=== PATIENT | male | born 1985 | race African-American/Black ===

== ENCOUNTER 2018-05-17 23:04 | Observation (INO) | payer OTHER ==
[~2018-05-17] VITALS: Ht 182.9 cm; Wt 122.1 kg
[~2018-05-17 23:04] MED LIST: ELIMITE 5% CREA60 GM TP; FLEXERIL10 MG PO; MOTRIN800 MG PO; NOHOMEMEDS; PROMETHAZINE HC25 M1 PO
[2018-05-17 23:36] LABS: HEMATOCRIT 47.6 % (38.0-50.0); HEMOGLOBIN 15.7 G/DL (12.5-16.6); MCH 28.1 PG (29.0-34.0); MCV 85.2 FL (86-99); PLATELET COUNT 249 K/uL (156-360); RBC DIS.WIDTH-CV 14.2 % (11.8-14.6); RBC DIS.WIDTH-SD 44.4 % (39-53); RED BLOOD COUNT 5.59 M/uL (4.00-5.50); WHITE BLOOD COUNT 8.2 K/uL (4.1-10.2)
[2018-05-18 00:19] LABS: ALBUMIN 3.7 g/dL (3.2-4.8); CHLORIDE 107 mEq/L (99-109); SODIUM 140 mEq/L (136-147)
[2018-05-18 00:22] LABS: GLUCOSE 109 mg/dL (70-99); TOTAL PROTEIN 7.6 g/dL (6.4-8.3)
[2018-05-18 00:23] LABS: TOTAL BILIRUBIN 0.4 mg/dL (0.0-1.0)
[2018-05-18 00:25] LABS: ALKALINE PHOSPHATASE 128 IU/L (3-129); CREATININE 1.1 mg/dL (0.6-1.3); GFR ESTIMATE (CALCULATED) > 59 mL/min/ (58.99-99999)
[2018-05-18 00:26] LABS: UREA NITROGEN (BUN) 12 mg/dL (9-23)
[2018-05-18 00:27] LABS: AST (GOT) 18 IU/L (2-34); DIRECT BILIRUBIN 0.1 mg/dL (0.0-0.3); TROP-I INTERPRETATION NEGATIVE; TROPONIN-I < 0.01 ng/mL (0.0-0.30)
[2018-05-18 00:28] LABS: ALT (GPT) 32 IU/L (3-49)
[2018-05-18 00:29] LABS: LIPASE 19 U/L (1.0-51.0)
[2018-05-18 01:33] LABS: TROP-I INTERPRETATION NEGATIVE; TROPONIN-I < 0.01 ng/mL (0.0-0.30)
[2018-05-18 03:47] VITALS: BP 132/82
[2018-05-18 07:31] LABS: TROP-I INTERPRETATION NEGATIVE; TROPONIN-I < 0.01 ng/mL (0.0-0.30)
[2018-05-18 07:44] VITALS: BP 112/73
[2018-05-18 11:28] VITALS: BP 115/60
[2018-05-18] MEDS ORDERED: ASPIRIN81 M2 PO (11:38)
== END 2018-05-18 15:16 | disposition home or self-care (01) ==
LOC: EME 23:04 → EDOF 05-18 02:40 → 4SOUTH 05-18 03:38
PROVIDERS: Emergency Medicine; Nurse Practitioner Adult Health
DX: R07.9 Chest pain, unspecified (principal); R10.13 Epigastric pain; R11.2 Nausea with vomiting, unspecified; F17.210 Nicotine dependence, cigarettes, uncomplicated; E66.9 Obesity, unspecified; Z68.36 Body mass index [BMI] 36.0-36.9, adult; R06.83 Snoring; Z82.49 Family history of ischemic heart disease and other diseases of the circulatory system; Z83.3 Family history of diabetes mellitus; F12.90 Cannabis use, unspecified, uncomplicated
CPT/HCPCS: 71046; 80048; 80076; 83690; 84484; 85027; 85379; 93005; 93306; 99281; 99285; G0378